=== PATIENT | female | born 1990 | race Caucasian/White ===

== ENCOUNTER 2023-08-30 18:15 | Emergency (ER) | payer OTHER, SELFPAY ==
[2023-08-30 18:19] VITALS: BP 134/78
[2023-08-30 18:45] LABS: % Basophils 0.9 % (0-2); % Eosinophils 1.5 % (0-6); % Immature Granulocytes 0.2 % (0-0.5); % Lymphocytes 17.6 % (20.5-51.1); % Monocytes 5.7 % (1.7-9.3); % Neutrophils 74.1 % (42.2-75.2); Absolute Basophils 0.1 10^3/uL (0-0.2); Absolute Eosinophils 0.2 10^3/uL (0-0.7); Absolute Lymphocytes 2.1 10^3/uL (1.2-3.4); Absolute Monocytes 0.7 10^3/uL (0.1-0.6); Absolute Neutrophils 8.6 10^3/uL (1.4-6.5); Hematocrit 39.5 % (37.0-47.0); Hemoglobin 13.8 g/dL (12.0-16.0); Mean Corp Hgb Conc. 34.9 g/dL (33.0-37.0); Mean Corpuscular Hgb 31.8 pg (27.0-31.0); Mean Platelet Volume 9.4 fL (7.4-10.4); Nucleated Red Blood Cells % 0 %; Platelet Count 277 10^3/uL (130-400); Red Blood Cell Count 4.34 10^6/uL (4.20-5.40); Red Cell Dist. Width 11.5 % (11.5-14.5); White Blood Cell Count 11.6 10^3/uL (4.8-10.8)
[2023-08-30 18:55] LABS: HCG, Serum Qualitative Screen Negative
[2023-08-30 19:03] LABS: ALT (SGPT) 28 U/L (0-35); AST (SGOT) 30 U/L (14-36); Albumin 4.8 g/dl (3.5-5.0); Alkaline Phosphatase 58 U/L (38-126); Blood Urea Nitrogen 15 mg/dl (7-17); Calcium 9.7 mg/dl (8.4-10.2); Carbon Dioxide 29 mmol/L (22-30); Chloride 100 mmol/L (98-107); Glucose 96 mg/dl (70-99); Potassium 3.7 mmol/L (3.5-5.1); Sodium 134 mmol/L (135-145); Total Bilirubin 0.6 mg/dl (0.2-1.3); eGFR > 60.00
--- NOTE | 2023-08-30 21:28 | ED.GENMED ---
History of Present Illness
General
Chief Complaint: Problems
Source: patient
Time Seen by Provider: 08/30/23 20:37
Travel History
Have you had any contact with someone who has COVID-19?: No
Do you have any symptoms of coronavirus? Fever > 100 degrees, chills, cough, shortness of breath, sore throat, loss of taste or smell, muscle aches, or headache?: No
History of Present Illness
History of Present Illness:
33-year-old female presents to the emergency room concerned that she may be having a miscarriage. Patient began having some pelvic cramping and vaginal bleeding today. Her last menstrual period was about 5 weeks ago. Patient took home
test which were positive evidently. Today however when she began having the cramping and bleeding she took another test which was negative.
Past History
Past History
ED Past Medical History: Psychiatric (Anxiety/depression), Other (Frequent UTIs, migraine headaches) and Other (migraines)
ED Past Surgical History: Tonsilectomy
Social History
Tobacco: Non-smoker
Alcohol: Occasional
Drug: None
Personal: Single
Living: with family (live at [facility])
Employment: Employed
Family History
Family History: Negative Diabetes
Phy Exam
Physical Exam
Physical Exam:
General: Awake, Alert, Oriented X3. No acute distress.
Vitals: unremarkable
Head: Atraumatic
Eyes: Pupils equal, EOMI
Throat: Airway intact, no exudates
Neck: Trachea midline
Lungs: Clear and equal b/l
Heart: Regular rate, no murmurs
Abd: Soft, Nontender, No pulsatile mass
Neuro: Nonfocal
Skin: Warm, dry, no rash
Extremities: pulses equal b/l, no edema
Course
Orders/Labs/Results
Orders:
Orders
08/30/23 18:28
Test Result ONCE
US Pelvis Only (non-obstetric) Urgent
Reason For Exam: spotting, PT thinks approx 5weeks preg
08/30/23 18:38
Type+Screen Urgent
CMP [Comprehensive Metabolic Panel] Urgent
Complete Blood Count/With Diff Urgent
HCG, Serum Qualitative Screen Urgent
Abnormal Lab Results
08/30/23
18:38
WBC 11.6 H 10^3/uL
(4.8-10.8)
MCH 31.8 H pg
(27.0-31.0)
Absolute Neuts (auto) 8.6 H 10^3/uL
(1.4-6.5)
Absolute Monos (auto) 0.7 H 10^3/uL
(0.1-0.6)
Lymphocytes % 17.6 L %
(20.5-51.1)
Sodium 134 L mmol/L
(135-145)
08/30/23 18:38
08/30/23 18:38
Vital Signs
Initial and Last Documented VS:
Initial Vital Signs
Temp Pulse Resp BP Pulse Ox
98.1 F 79 16 134/78 100
08/30/23 18:19 08/30/23 18:19 08/30/23 18:19 08/30/23 18:19 08/30/23 18:19
Last Documented Vital Signs
Temp Pulse Resp BP Pulse Ox
98.1 F 88 16 127/81 96
08/30/23 18:19 08/30/23 21:39 08/30/23 21:39 08/30/23 21:39 08/30/23 21:39
Information
Weeks gestation: N/A
Location: N/A
MDM/Problems Addressed
Differential Diagnosis Includes:
spont , ectopic, threatened ab
MDM/Problems Addressed:
Ultrasound shows an empty uterus. No other abnormal findings. test is negative at this time. Evidently patient had a short-lived which is completely passed. No further intervention required. Follow-up with [facility] as an
outpatient
*Radiology
Radiology exam reviewed: radiology read reviewed
*Pulse Oximetry
Patient hypoxic: no
*Critical Care Note
Total Time (30-74mins, 75-104mins- exclusive of procedures): Not Applicable
ED Attending Note
-
Portions of this chart may have been created with voice recognition software.� Occasional wrong word or��sound alike� substitutions may have occurred due to the inherent limitations of voice recognition software.
Discharge Plan
Departure
Patient Disposition: Home (Routine Discharge)
Date of Disposition: 08/30/23
Time of Disposition: 21:28
Patient with high blood pressure during this ER visit?: No
Condition: Good
Discharge Problem:
Complete
Instructions: Miscarriage (DC)
Prescriptions:
No Action
ibuprofen [Advil] 200 MG tablet
400 mg PO Q6H PRN (Reason: pain)
topiramate [Topamax] 100 MG tablet
100 mg PO DAILY
Bcp
1 tab PO DAILY
multivitamin [Multi-Day] 1 EACH tablet
1 tab PO DAILY
Vitamin C:
1 tab PO DAILY
amoxicillin-pot clavulanate 1 TABLET tablet
1 tab PO Q12 Qty: 14 0RF
amoxicillin-pot clavulanate 875-125 mg tablet
1 tab PO Q12H Qty: 14 0RF
ondansetron 4 mg tablet,disintegrating
4 mg PO Q8H PRN (Reason: nausea and vomiting) Qty: 10 0RF
Referrals:
Greyson Pulido MD [Family Provider] -
Activity Restrictions/Additional Instructions:
Please follow up with your [facility].
Interventions
Interventions:
*Risk Screen - Suicide Last Done: 08/30/23 18:19
*General Assessment Last Done: 08/30/23 20:44
*Neglect/Abuse Screening Last Done: 08/30/23 18:19
ED- Fall Risk Assessment Last Done: 08/30/23 20:44
*ED COVID-19 Vaccine History Last Done: 08/30/23 18:19
*Nursing Disposition Last Done: 08/30/23 21:39
ED-Female Genitourinary Assessment Last Done: 08/30/23 20:44
Discharge Date and Time
Discharge Date/Time: 08/30/23 21:40
[2023-08-30 21:39] VITALS: BP 127/81
== END 2023-08-30 21:40 | disposition home or self-care (01) ==
LOC: EMR 18:15
PROVIDERS: Emergency Medicine; EMERGENCY PHYSICIAN Emergency Medicine; FAMILY PHYSICIAN Internal Medicine
DX: O03.9 Complete or unspecified spontaneous abortion without complication (principal)
CPT/HCPCS: 99284; 76856; 80053; 84703; 85025; 86850; 86900; 86901

== ENCOUNTER 2025-02-07 18:07 | Emergency (ER) | payer OTHER, SELFPAY ==
[2025-02-07 18:09] VITALS: BP 140/84
[2025-02-07 18:49] LABS: Urine Character Clear (Clear)
[2025-02-07 18:57] LABS: Urine Squamous Cell >30 /LPF (Few)
== END 2025-02-14 07:40 | disposition left against medical advice (07) ==
LOC: EMR 18:07
PROVIDERS: EMERGENCY PHYSICIAN Emergency Medicine
DX: O99.891 Other specified diseases and conditions complicating pregnancy (principal); Z53.21 Procedure and treatment not carried out due to patient leaving prior to being seen by health care provider
CPT/HCPCS: 81003; 81015; 87086